=== PATIENT | female | born 1950 | race Caucasian/White ===

== ENCOUNTER 2018-04-06 22:06 | Emergency (ER) | payer MEDICARE ==
[2018-04-06] MEDS ORDERED: Fluorescein Opthalmic Strip ONE (22:27)
[2018-04-06] MEDS ORDERED: Proparacaine 0.5% Opth 15 ML BOT ONE (22:27)
[2018-04-06] MEDS ORDERED: Amoxicillin/Potassium Clav 875 MG TAB ONE (23:07)
[2018-04-06 23:23] LABS: Anion Gap 18 mmol/L (10-20); BUN (Urea Nitrogen) 18 mg/dL (9.8-20.1); Calc. Creatinine Clearance 0 mL/min (70-130); Carbon Dioxide 20 mmol/L (23-31); Chloride 107 mmol/L (98-107); Estimated GFR-MDRD 81; Glucose 91 mg/dL (80-115); Potassium 3.8 mmol/L (3.5-5.1); Sodium 141 mmol/L (136-145)
[2018-04-06 23:37] LABS: Hemoglobin 13.7 g/dL (12.0-16.0); Mean Corpuscular HGB CONC 33.9 g/dL (32.0-36.0); Mean Corpuscular Hemoglobin 30.8 pg (27.0-31.0); Mean Platelet Volume 6.7 fL (7.4-10.4); Platelet Count 201 thou/uL (130-400); RBC Distribution Width 11.4 % (11.5-14.5); Red Blood Cell (RBC) Count 4.45 mill/uL (4.20-5.40); White Blood Cell (WBC) Count 6.7 thou/uL (4.8-10.8)
[2018-04-06 23:47] LABS: Anisocytosis SLIGHT = 6-15 cells (100X) (0-5/hpf); Band 4 % (5-11); Eosinophils 1 % (0-10); Lymphocytes 20 % (21-51); MDiff Complete? YES; Monocytes 6 % (0-10); Neutrophil 67 % (42-75)
--- NOTE | 2018-04-06 23:54 | CT ---
CT OF ORBITS WITH CONTRAST 04/06/18 COMPARISON: None. HISTORY: Eye discharge, pain, possible orbital cellulitis. TECHNIQUE: Serial axial CT imaging at 2 mm intervals through the orbits with IV contrast. Coronal and sagittal r eformatted imaging obtained. FINDINGS: The visualized paranasal sinuses/mastoid air cells appear grossly unremarkable. Osseous structures appear intact. No lytic or blastic bone lesion. No evidence for fracture. The intraconal fat appears clear bilaterally. No fluid collection identified. IMPRESSION: Unremarkable contrast enhanced CT examination of the orbits. POS: REECE
== END 2018-04-07 00:10 | disposition home or self-care (01) ==
LOC: SCSER 22:06
DX: H10.9 Unspecified conjunctivitis (principal); L03.213 Periorbital cellulitis; I10 Essential (primary) hypertension; E78.5 Hyperlipidemia, unspecified; F32.9 Major depressive disorder, single episode, unspecified; Z79.899 Other long term (current) drug therapy
CPT/HCPCS: 70481; 80048; 85025